=== PATIENT | female | born 1980 | race Caucasian/White ===

== ENCOUNTER 2017-01-08 08:59 | Emergency (ER) | payer MEDICAID ==
[~2017-01-08] VITALS: Ht 167.6 cm; Wt 77.5 kg
[~2017-01-08 08:59] MED LIST: IBUP-1542 PO
[2017-01-08 09:01] VITALS: Ht 167.6 cm; Wt 77.5 kg
--- NOTE | 2017-01-08 09:39 | ERD ---
ER Documentation Chief Complaint Date/Time DATE: 01/08/17 TIME: 09:36 Chief Complaint LT SIDE FLANK PAIN X4 DAYS HPI This is a 36 year old female who presents to the emergency department complaining of left sided back pain for the past 4-5 days. States she has taken ibuprofen for the pain. States she has some pain when she takes a deep breath. Denies any cough, fever or chills, dysuria, nausea or vomiting. ROS All systems reviewed and are negative except as per history of present illness. Medications Home Meds Active Scripts Cyclobenzaprine Hcl* (Cyclobenzaprine Hcl*) 10 Mg Tablet, 10 MG PO QHS, #7 TAB Prov:MEGHNA AGRAWAL-C 01/08/17 Naproxen* (Naprosyn*) 500 Mg Tablet, 500 MG PO BID Y for PAIN AND/OR INFLAMMATION, #30 TAB Prov:MEGHNA AGRAWALC 01/08/17 Tramadol HCl (Tramadol HCl) 50 Mg Tablet, 50 MG PO Q4 Y for PAIN, #20 TAB Prov:MEGHNA AGRAWALC 01/08/17 Ibuprofen* (Motrin*) 600 Mg Tab, 600 MG PO Q6H Y for PAIN AND OR ELEVATED TEMP, #30 TAB Prov:DANIEL MTZ NP 11/16/15 Reported Medications Ibuprofen* (Motrin*) Unknown Strength Tab, PO Q6H Y for PAIN AND OR ELEVATED TEMP, #30 TAB 11/15/15 Allergies Allergies: Coded Allergies: No Known Allergy (Unverified , 03/03/12) PMhx/Soc Medical and Surgical Hx: pt denies Medical Hx History of Surgery: Yes ( x 3) Anesthesia Reaction: No Hx Neurological Disorder: No Hx Respiratory Disorders: No Hx Cardiac Disorders: No Hx Psychiatric Problems: No Hx Miscellaneous Medical Probl: No Hx Alcohol Use: No Hx Substance Use: No Hx Tobacco Use: No Smoking Status: Never smoker Physical Exam Vitals Vital Signs Date Time Temp Pulse Resp B/P Pulse Ox O2 Delivery O2 Flow Rate FiO2 01/08/17 09:01 98.7 68 16 143/81 99 Physical Exam Const: NAD Head: Atraumatic Eyes: Normal Conjunctiva ENT: Normal External Ears, Nose and Mouth. Neck: Full range of motion..~ No meningismus. Resp: Clear to auscultation bilaterally Cardio: Regular rate and rhythm, no murmurs Abd: Soft, non tender, non distended. Normal bowel sounds Skin: No petechiae or rashes Back: No midline tenderness. left sided flank tenderness. No CVA tenderness Ext: No cyanosis, or edema Neur: Awake and alert Psych: Normal Mood and Affect Results 24 hrs Laboratory Tests Test 01/08/17 09:41 Urine Color YELLOW Urine Clarity SLIGHTLY CLOUDY Urine pH 6.0 Urine Specific [place] 1.018 Urine Ketones NEGATIVEmg/dL Urine Nitrite NEGATIVEmg/dL Urine Bilirubin NEGATIVEmg/dL Urine Urobilinogen NEGATIVEmg/dL Urine Leukocyte Esterase NEGATIVELeu/ul Urine Microscopic RBC 2/HPF Urine Microscopic WBC 0/HPF Urine Squamous Epithelial Cells FEW/HPF Urine Hemoglobin 1+mg/dL Urine Glucose NEGATIVEmg/dL Urine Total Protein NEGATIVEmg/dl Current Medications Medications (Trade) Dose Ordered Sig/Elvira Route PRN Reason Start Time Stop Time Status Last Admin Dose Admin Ibuprofen (Motrin) 800 mg ONCE ONCE PO 01/08/17 10:00 01/08/17 10:01 DC 01/08/17 09:53 Procedures/MDM This a 36-year-old female who presents emergency department today complaining of left-sided back pain for the past 5 days that is worse when she takes a deep breath I did obtain a UA given her complaints of flank pain. UA is negative for infection. Patient is afebrile and otherwise well appearing. Low suspicion for pyelonephritis or nephrolithiasis. Urine test is negative Symptoms likely muskuloskeletal, especially given pain with deep breath. Patient denied any cough and her oxygen saturation is 99. Low low suspicion for pneumonia. Do not feel the patient requires a chest x ray at this time given that the patient's pain low in her lumbar area. Patient Is afebrile and otherwise well-appearing. Has no loss of bowel or bladder control. She has no midline tenderness. Low suspicion for cauda equina or abscess. Given Motrin here in the emergency department as she was driving herself. Patient given a prescription for Tramadol, naprosyn and flexeril. At this time the patient is stable for discharge and outpatient management. Patient should follow up with their PCP in the next 1-2 days. They may return to the emergency department sooner for any persistent or worsening of symptoms. Patient understood and agreed with the plan. Departure Diagnosis: Primary Impression: Flank pain Condition: Fair MEGHNA AGRAWAL PA-C Jan 08, 2017 09:39
[2017-01-08] MEDS ORDERED: IBUPROFEN 800 MG TAB PO ONE (10:00)
[2017-01-08 10:42] LABS: ADD UMIC YES; UR ASCORBIC ACID NEGATIVE (NEGATIVE); UR BILIRUBIN (Dip) NEGATIVE (NEGATIVE); UR BLOOD (Dip) 1+ mg/dL (NEGATIVE); UR CLARITY SLIGHTLY CLOUDY (CLEAR); UR COLOR YELLOW (YELLOW); UR GLUCOSE (Dip) NEGATIVE (NEGATIVE); UR KETONES (Dip) NEGATIVE (NEGATIVE); UR LEUKOCYTE ESTERASE (Dip) NEGATIVE Leu/ul (NEGATIVE); UR NITRITE (Dip) NEGATIVE (NEGATIVE); UR RBC 2 /HPF (0-5); UR SPECIFIC GRAVITY (Dip) 1.018 (1.003-1.030); UR SQUAMOUS EPITHELIAL CELL FEW /HPF (FEW); UR TOTAL PROTEIN (Dip) NEGATIVE (NEGATIVE); UR UROBILINOGEN (Dip) NEGATIVE (NEGATIVE)
[2017-01-08] MEDS ORDERED: NAPR-260 PO (10:56)
[2017-01-08] MEDS ORDERED: CYCL-319 PO (10:56)
[2017-01-08] MEDS ORDERED: TRAM50TA2 PO (10:56)
== END 2017-01-08 11:14 | disposition home or self-care (01) ==
LOC: FTE 08:59
DX: R10.9 Unspecified abdominal pain (principal)
CPT/HCPCS: 81001; Z7502; Z7610; 99284

== ENCOUNTER 2018-10-25 15:25 | Emergency (ER) | payer MEDICAID ==
[~2018-10-25] VITALS: Ht 167.6 cm; Wt 88.3 kg
[~2018-10-25 15:25] MED LIST changes: +CYCL10TA7 PO; +NAPR-985 PO; +TRAM50TA2 PO
[2018-10-25 15:31] VITALS: BP 135/77; PULSE 70; RESP 16; Ht 167.6 cm; Wt 88.3 kg
[2018-10-25] MEDS ORDERED: KETOROLAC 30 MG INJ IM STA (16:12)
[2018-10-25] MEDS ORDERED: CEPH-443 PO (16:44)
[2018-10-25] MEDS ORDERED: CYCL10TA7 PO (16:44)
[2018-10-25] MEDS ORDERED: IBUP-1542 PO (16:44)
--- NOTE | 2018-10-25 17:44 | ERD ---
ER Documentation Chief Complaint Chief Complaint R lower back pain x 3 days HPI 38-year-old female presented to the emergency department with complaints of right-sided low back pain which is intermittent for the past 3 days. She states it began while she was cooking food and moving around in the kitchen. Pain is r ated 6/10 in severity currently. She states it is worse with walking. She denies any dysuria, fevers, nausea, vomiting, diarrhea, abdominal pain. She took naproxen at home without significant relief. No other symptoms reported currently. ROS All systems reviewed and are negative except as per history of present illness. Medications Home Meds Active Scripts Cephalexin* (Keflex*) 500 Mg Capsule, 500 MG PO QID for 5 Days, CAP Prov:PAMELA CHACON PA-C 10/25/18 Cyclobenzaprine Hcl* (Cyclobenzaprine Hcl*) 10 Mg Tablet, 10 MG PO TID, #15 TAB Prov:PAMELA CHACON PA-C 10/25/18 Ibuprofen* (Motrin*) 600 Mg Tab, 600 MG PO Q6, #30 TAB Prov:PAMELA CHACON PA-C 10/25/18 Cyclobenzaprine Hcl* (Cyclobenzaprine Hcl*) 10 Mg Tablet, 10 MG PO QHS, #7 TAB Prov:MEGHNA AGRAWAL PA-C 01/08/17 Naproxen* (Naprosyn*) 500 Mg Tablet, 500 MG PO BID PRN for PAIN AND/OR INFLAMM ATION, #30 TAB Prov:MEGHNA AGRAWAL PA-C 01/08/17 Tramadol HCl (Tramadol HCl) 50 Mg Tablet, 50 MG PO Q4 PRN for PAIN, #20 TAB Prov:MEGHNA AGRAWAL PA-C 01/08/17 Ibuprofen* (Motrin*) 600 Mg Tab, 600 MG PO Q6H PRN for PAIN AND OR ELEVATED TEMP, #30 TAB Prov:DANIEL MTZ NP 11/16/15 Reported Medications Ibuprofen* (Motrin*) Unknown Strength Tab, PO Q6H PRN for PAIN AND OR ELEVATED TEMP, #30 TAB 11/15/15 Allergies Allergies: Coded Allergies: No Known Allergy (Unverified , 03/03/12) PMhx/Soc Medical and Surgical Hx: pt denies Medical Hx History of Surgery: Yes ( x 3) Anesthesia Reaction: No Hx Neurological Disorder: No Hx Respiratory Disorders: No Hx Cardiac Disorders: No Hx Psychiatric Problems: No Hx Miscellaneous Medical Probl: No Hx Alcohol Use: No Hx Substance Use: No Hx Tobacco Use: No Smoking Status: Never smoker FmHx Family History: No diabetes Physical Exam Vitals Vital Signs Date Temp Pulse Resp B/P (MAP) Pulse Ox O2 O2 Flow FiO2 Time Delivery Rate 10/25/18 98.3 70 16 135/77 100 15:31 (96) Physical Exam Const: No acute distress Head: Atraumatic Eyes: Normal Conjunctiva ENT: Normal External Ears, Nose and Mouth. Neck: Full range of motion. No meningismus. Resp: Clear to auscultation bilaterally Cardio: Regular rate and rhythm, no murmurs Abd: Soft, non tender, non distended. Normal bowel sounds. No rebound tenderness or guarding. No McBurney's point tenderness. Skin: No petechiae or rashes Back: No midline or flank tenderness. Mild tenderness palpation of the paraspinal muscles of the lumbar spine on the right. No step-offs. No CVA tenderness. Ext: No cyanosis, or edema Neur: Awake and alert Psych: Normal Mood and Affect Results 24 hrs Laboratory Tests Test 10/25/18 16:26 10/25/18 16:27 Bedside Urine pH (LAB) 5.5 Bedside Urine Protein (LAB) Negative Bedside Urine Glucose (UA) Negative Bedside Urine Ketones (LAB) Negative Bedside Urine Blood Trace-lysed Bedside Urine Nitrite (LAB) Negative Bedside Urine Leukocyte Esterase (L Trace POC Beta HCG, Qualitative NEGATIVE Current Medications Medications Dose Sig/Elvira Start Time Status Last (Trade) Ordered Route PRN Stop Time Admin Dose Reason Admin Ketorolac 30 mg ONCE STAT 10/25/18 DC 10/25/18 Tromethamine IM 16:12 16:32 (Toradol) 10/25/18 16:13 Procedures/MDM This is a pleasant 38-year-old female presenting to the emergency department complaints of right-sided low back pain. Symptoms may be secondary to urinary tract infection or musculoskeletal cause. Patient's musculoskeletal symptoms have stabilized while they have been evaluated in the department and are appropriate for outpatient work up. No evidence of cauda equina, cord compression or infiltrative etiology. Patient's infectious symptoms have stabilized while they have been evaluated in the department and are appropriate for outpatient care and work up. Exam and w/u not consistent w/ sepsis, meningitis, pneumonia, or surgical abdomen. No evidence of life-threatening pathology at time of discharge. Pt/family in agreement with discharge plan/diagnosis. Pt/family advised to return immediately with any new or worsening symptoms. Follow-up with primary care physician within the next 1-2 days. Patient's blood pressure was elevated (>120/80) but appears stable without evidence of hypertension emergency or urgency. The patient is to follow-up and pursue outpatient monitoring and therapy with their primary care physician within 1 week and return immediately if they have any new, worsening, or concerning symptoms. Departure Diagnosis: Primary Impression: UTI (lower urinary tract infection) Additional Impression: Back pain Condition: Fair Patient Instructions: Understanding Urinary Tract Infections (UTIs), Back Pain (Acute Or Chronic) Referrals: [facility] YOU HAVE RECEIVED A MEDICAL SCREENING EXAM AND THE RESULTS INDICATE THAT YOU DO NOT HAVE A CONDITION THAT REQUIRES URGENT TREATMENT IN THE EMERGENCY DEPARTMENT. FURTHER EVALUATION AND TREATMENT OF YOUR CONDITION CAN WAIT UNTIL YOU ARE SEEN IN YOUR DOCTORS OFFICE WITHIN THE NEXT 1-2 DAYS. IT IS YOUR RESPONSIBILITY TO MAKE AN APPOINTMENT FOR FOLOW-UP CARE. IF YOU HAVE A PRIMARY DOCTOR --you should call your primary doctor and schedule an appointment IF YOU DO NOT HAVE A PRIMARY DOCTOR YOU CAN CALL OUR PHYSICIAN REFERRAL HOTLINE AT IF YOU CAN NOT AFFORD TO SEE A PHYSICIAN YOU CAN CHOSE FROM THE FOLLOWING [facility] [address] [facility]. [facility] [address] [facility] [facility] [address] [facility] [facility] [address] [facility]. [facility] [address] [facility] [facility]. [address] Additional Instructions: Call your primary care doctor TOMORROW for an appointment during the next 1-2 days.See the doctor sooner or return here if your condition worsens before your appointment time. PAMELA CHACON PA-C Oct 25, 2018 17:44
== END 2018-10-25 16:51 | disposition home or self-care (01) ==
LOC: FTE 15:25
DX: N39.0 Urinary tract infection, site not specified (principal)
CPT/HCPCS: 81003; 81025; 96372; J1885; Z7502

== ENCOUNTER 2018-11-11 22:03 | Emergency (ER) | payer MEDICAID ==
[~2018-11-11] VITALS: Ht 167.6 cm; Wt 90.0 kg
[~2018-11-11 22:03] MED LIST changes: +CEPH-443 PO
[2018-11-11 22:12] VITALS: Ht 167.6 cm; Wt 90.0 kg
[2018-11-11] MEDS ORDERED: IBUPROFEN 600 MG TAB PO ONE (22:30)
[2018-11-11] MEDS ORDERED: HYDROCODONE/APAP (5/325) TAB PO ONE (23:00)
[2018-11-11] MEDS ORDERED: HYDR-4011 PO (23:17)
[2018-11-11] MEDS ORDERED: IBUP-1542 PO (23:17)
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
[2018-11-12 00:46] VITALS: BP 120/75; PULSE 70; RESP 18
== END 2018-11-12 00:46 | disposition home or self-care (01) ==
LOC: FTE 22:03
DX: S52.332A Displaced oblique fracture of shaft of left radius, initial encounter for closed fracture (principal); V18.4XXA Pedal cycle driver injured in noncollision transport accident in traffic accident, initial encounter
CPT/HCPCS: 29125; 73110; Z7502; Z7610